=== PATIENT | female | born 1960 | race Caucasian/White ===

== ENCOUNTER → 2017-04-01 | Outpatient (CLI) | payer BC ==
--- NOTE | 2017-04-01 14:10 | RADIOLOGY REPORT PS360 ---
PROCEDURE: 2-D M-mode and color Doppler study INDICATIONS FOR THE TEST: Chest pain COPD Heart Murmur Tobacco SmokingX Palpitations Fatigue Syncope EdemaX HypertensionXDiabetes Mellitus Rheumatic Fever SOBXDOE ObesityXHyperlipidemiaX Family History HD Additional History PATIENT INFORMATION HEIGHT: 71 WEIGHT:230 GENDER: Female B/P:150/94 2-D/M-MODE INTERPRETATION: 2-D MEASUREMENTS OBSERVED VALUES IN CMS Right Ventricular Dimension (RVDd) 2.6 Interventricular Septum (Thickness)(IVsd) 1.0 Left Ventricular Internal Dimensions(LVIDd) 5.2 Left Ventricular Posterior Wall (Thickness)(LVPWd) 1.0 Aortic Root 3.7 Aortic Cusp Separation 2.1 Left Atrial Dimensions (LAD) 2.9 2D 1. Left atrium is qualitatively mildly enlarged, left ventricle is normal size, left ventricle wall thickness is upper limit of the normal, there visually estimated ejection fraction 55% with no obvious regional wall motion abnormality. 2. The right atrium and right ventricle are relatively normal size and function. 3. The aortic valve is minimally thickened and fibrosed. 4. The mitral and tricuspid valve are grossly normal. 5. The pulmonic valve is poorly visualized. 6. No significant pericardial effusion noted. DOPPLER INTERROGATION: Doppler interrogation of the aortic, mitral and tricuspid valvular presence of mild mitral and tricuspid regurgitation, tricuspid and jet velocity insufficient for calculation of the right ventricular systolic pressure. Diastolic parameters are within normal range. CONCLUSION: 1. Mildly left atrium, normal left ventricular size, visually estimated ejection fraction 55% with no obvious regional wall motion abnormality, diastolic parameters are within normal range. 2. Mild mitral and tricuspid regurgitation. 3. No significant pericardial effusion noted.
== END ==
LOC: RT 11:36
DX: R60.0 Localized edema (principal); R06.02 Shortness of breath

== ENCOUNTER → 2017-05-12 | Outpatient (CLI) | payer BC | LOC: RT 10:04 | DX: I83.892 Varicose veins of left lower extremity with other complications (principal) ==